=== PATIENT | female | born 1960 | race Caucasian/White ===

== ENCOUNTER → 2017-02-04 | Outpatient (CLI) | payer OTHER | LOC: BRMIMAGING 13:46 | PROVIDERS: ATTEND Physician Assistant | DX: Z12.31 Encounter for screening mammogram for malignant neoplasm of breast (principal) | CPT/HCPCS: G0202 ==

== ENCOUNTER → 2017-03-29 | Outpatient (CLI) | payer OTHER | LOC: BRMIMAGING 14:10 | PROVIDERS: ATTEND Physician Assistant | DX: Z13.820 Encounter for screening for osteoporosis (principal); M85.89 Other specified disorders of bone density and structure, multiple sites ==